=== PATIENT | male | born 1990 | race Caucasian/White ===

== ENCOUNTER 2021-12-07 18:55 | Emergency (ER) | payer OTHER, MEDICAID, SELFPAY ==
[2021-12-07 19:10] VITALS: BP 135/83; PULSE 94; RESP 20; TEMP 37.1; O2SAT 98; BMI 25.1
--- NOTE | 2021-12-07 19:14 | DI.RAD.S_ITS ---
PROCEDURE: XR FINGER LT MIN 2V INDICATIONS: finger laceration TECHNIQUE: AP hand, 2 views of the left index finger(s) acquired. COMPARISON: None. FINDINGS: Bones: No fractures or dislocations. No suspicious bony lesions. Soft tissues: No suspicious soft tissue calcifications. No radiopaque soft tissue foreign body seen. IMPRESSION: From left index finger without acute fracture or dislocation. No radiopaque soft tissue foreign bodies. Dictated by: Silvino Wilson M.D. on 12/07/2021 at 19:48 Approved by: Silvino Wilson M.D. on 12/07/2021 at 19:49
--- NOTE | 2021-12-07 20:39 | ED_ITS ---
HPI - Wound/Laceration <MIRIAM Rowland - Last Filed: 12/07/21 21:48> General Chief Complaint: Wound/Laceration Stated Complaint: cut left index finger Time Seen by Provider: 12/07/21 20:39 Source: patient Mode of arrival: Ambulatory History of Present Illness HPI narrative: this is a 31-year-old male presents to the emergency department complaining of a left 2nd digit laceration he sustained while he was cutting a fishing line and accidentally cut his finger instead. Patient is right handed, has a 2 cm laceration to the palmar aspect of his 2nd distal finger, denies knowing when his last tetanus was, states it has been bleeding a lot since this happened. He applied a pressure dressing. He denies any sensation changes, states he is able to flex and extend his finger without any deficit, endorses pain and tenderness, denies fingernail injury. Related Data Previous Rx's Medication Instructions Recorded cephalexin 500 mg capsule 500 mg PO BID 5 Days #10 cap 12/07/21 mupirocin 2 % topical ointment 1 applic TOPICAL BID #15 g 12/07/21 Allergies Allergy/AdvReac Type Severity Reaction Status Date / Time No Known Drug Allergies Allergy Verified 12/07/21 19:10 Review of Systems <MIRIAM Rowland - Last Filed: 12/07/21 21:48> Review of Systems Narrative: General: denies fever, chills Head/Neck: denies headache, neck pain Eyes: denies visual changes, eye pain Cardio: denies chest pain, palpitations Respiratory: denies shortness of breath, cough GI: denies abdominal pain, nausea, vomiting, or diarrhea : denies dysuria, hematuria MSK: denies joint pain, muscle weakness Skin: denies rash, itching, laceration to the 2nd digit, distal to have approximately 2 cm Neuro: denies numbness, tingling Patient History <MIRIAM Rowland - Last Filed: 12/07/21 21:48> Social History Smoking Status: Current every day smoker Smoking Status: Current every day smoker tobacco type: vaping Substance Use Type: does not use Exam <MIRIAM Rowland - Last Filed: 12/07/21 21:48> Narrative Exam Narrative: Independently reviewed vitals signs and nursing notes. General: cooperative, comfortable, in no acute distress, well developed and well groomed Head: atraumatic, symmetrical facial expressions Neck: supple, atraumatic, without lymphadenopathy. Eyes: pupils equal round and reactive, EOMI, conjunctiva normal Nose: nares patent, no rhinorrhea MSK: moves all extremities, ambulatory w/steady gait, neurovascularly intact, no weakness Skin: brisk capillary refill, no rash, no erythema, left 2nd digit distal phalanx with 2 cm deep laceration approximately 0.4 cm deep. Bleeding is contr olled, does not extend into fingernail however laceration does jag medially to the nail in a L-shape Neuro: normal speech and cognition, A&O x3, normal tone Psych: mental status is grossly normal, congruent mood, normal affect, pleasant and cooperative Initial Vital Signs Initial Vital Signs: Vital Signs Temperature 98.7 F 12/07/21 19:10 Pulse Rate 94 H 12/07/21 19:10 Respiratory Rate 20 12/07/21 19:10 Blood Pressure 135/83 12/07/21 19:10 Pulse Oximetry 98 12/07/21 19:10 <Eduardo Cedillo DO - Last Filed: 12/08/21 00:24> Initial Vital Signs Initial Vital Signs: Vital Signs Temperature 98.7 F 12/07/21 19:10 Pulse Rate 94 H 12/07/21 19:10 Respiratory Rate 20 12/07/21 19:10 Blood Pressure 135/83 12/07/21 19:10 Pulse Oximetry 98 12/07/21 19:10 Procedures <MIRIAM Rowland - Last Filed: 12/07/21 21:48> Laceration Repair Laceration 1: Description: linear Depth: simple, single layer (Approximately 0.4 cm deep) Local Anesthetic: lidocaine 1% and with bicarb (Digital block at the IP joint) Amount of anesthesia used (mL): 3 Pre-repair: wound explored, irrigated extensively, deep structures intact and extensive debridement Skin layer closed with: nylon Skin layer suture size: 5-0 Number of sutures: 8 Technique: simple, interrupted Course <MIRIAM Rowland - Last Filed: 12/07/21 21:48> Orders Ordered: ED Orders 12/07/21 19:14 XR finger LT min 2V Stat Discontinued Medications Bacitracin (Bacitracin Oint 0.9 Gm Pckt) 1 applic TOP NOW ONE Stop: 12/07/21 21:19 Last Admin: 12/07/21 21:23 Dose: 1 applic Documented by: CHELSEY Diphtheria/Tetanus/Acell Pertussis (Tet,Diph,Pertuss(Acell),Vac/Pf 0.5 Ml Syringe) 0.5 ml IM .ONCE ONE Stop: 12/07/21 20:42 Last Admin: 12/07/21 20:43 Dose: 0.5 ml Documented by: MANJINDER Lidocaine/Sodium Bicarbonate (Lido 1%/Sod Bicarb 8.4% (10ml) 10 Ml Syringe) 10 ml INJ NOW ONE Stop: 12/07/21 20:40 Last Admin: 12/07/21 20:42 Dose: 10 ml Documented by: MANJINDER Vital Signs Vital signs: Vital Signs - 8 hr 12/07/21 19:10 12/07/21 21:31 Temperature 98.7 F Pulse Rate 94 H 63 Respiratory Rate 20 Blood Pressure 135/83 118/66 Pulse Oximetry 98 97 <Eduardo Cedillo, DO - Last Filed: 12/08/21 00:24> Orders Ordered: ED Orders 12/07/21 19:14 XR finger LT min 2V Stat Discontinued Medications Bacitracin (Bacitracin Oint 0.9 Gm Pckt) 1 applic TOP NOW ONE Stop: 12/07/21 21:19 Last Admin: 12/07/21 21:23 Dose: 1 applic Documented by: CHELSEY Diphtheria/Tetanus/Acell Pertussis (Tet,Diph,Pertuss(Acell),Vac/Pf 0.5 Ml Syringe) 0.5 ml IM .ONCE ONE Stop: 12/07/21 20:42 Last Admin: 12/07/21 20:43 Dose: 0.5 ml Documented by: MANJINDER Lidocaine/Sodium Bicarbonate (Lido 1%/Sod Bicarb 8.4% (10ml) 10 Ml Syringe) 10 ml INJ NOW ONE Stop: 12/07/21 20:40 Last Admin: 12/07/21 20:42 Dose: 10 ml Documented by: MANJINDER Vital Signs Vital signs: Vital Signs - 8 hr 12/07/21 19:10 12/07/21 21:31 Temperature 98.7 F Pulse Rate 94 H 63 Respiratory Rate 20 Blood Pressure 135/83 118/66 Pulse Oximetry 98 97 [facility] - Wound/Laceration <Cassandra Sanchez BammagalieMIRIAM - Last Filed: 12/07/21 21:48> Imaging Data Extremity x-ray #1: Radiologist's Impression: PROCEDURE:? XR FINGER LT MIN 2V ? INDICATIONS:? finger laceration ? TECHNIQUE:? AP hand, 2 views of the left index finger(s) acquired.? ? COMPARISON:? None. ? FINDINGS:? ? Bones:? No fractures or dislocations.? No suspicious bony lesions.? ? Soft tissues:? No suspicious soft tissue calcifications.? No radiopaque soft tissue foreign body seen. ? IMPRESSION:? From left index finger without acute fracture or dislocation. No radiopaque soft tissue foreign bodies. ? ? ? Dictated by: Silvino Wilson M.D. on 12/07/2021 at 19:48 ? ? Approved by: Silvino Wilson M.D. on 12/07/2021 at 19:49 ? [facility] Narrative Medical decision making narrative: This is a 31-year-old male presents to the emergency department with a laceration to the distal tip of his left 2nd digit 2 cm long by 0.4 cm deep. Wound was thoroughly irrigated with normal saline, x-ray was negative for fracture dislocation or foreign body. Suture repair requiring 8, 5.0 Ethilon sutures completed, bleeding was controlled. Patient tolerated well, digital block at the D IP joint. Patient's tetanus was updated, he was prescribed mupirocin ointment and encouraged to use this and keep his wound covered for the next 10 days until his sutures come out. If he develops redness, streaking, worsening pain, for your discharge, or signs of infection he understands to start taking the cephalexin which was prescribed. Patient is appropriate and amenable to discharge home. Vital signs are stable on repeat examination is unremarkable. Patient has been informed of results. Patient has been given strict return to ER precautions for any new or worsening symptoms. Patient understands to follow up closely with outpatient providers as instructed. Patient understands plan and agrees to discharge home. All questions and rosario rns answered at this time. Discharge Plan Departure Patient Disposition: Home Clinical Impression: Laceration Instructions: DI for Laceration Repair Activity Restrictions/Additional Instructions: *You have been diagnosed with a laceration repair to your last 2nd digit requiring 8 sutures. These are not dissolve a ball, please have them removed in 10 days. Please apply topical mupirocin ointment to prevent infection and keep it covered daily with a Band-Aid. If you develop any signs of infection including increased pain, redness, swelling, streaking up your finger, please start taking the antibiotic. Your tetanus was updated today, your good for another 10 years, thank you for trusting us with your care, I hope you feel better soon. *What to do: *Please continue to take your regular medications as directed. [ x] New medication prescriptions sent to your pharmacy: [[facility] ] [ ] New medication written as a paper prescription [ ] No new medications given *Please follow up with your primary care provider in 2-3 days, call for an appointment. Let them know you were seen in the Emergency Department and that we asked that you be seen for follow-up. We will electronically transmit a record of today's note if your PCP is in our system *If you do not have a primary care provider please contact [phone] to establish care with one of the [facility] primary care providers. *Return to Emergency Department if you should have any new, worsening or concerning symptoms, such as [fever greater than 101F, chills, worsening pain, persistent vomiting or other bothersome symptoms] Prescriptions: New mupirocin 2 % ointment 1 applic topical BID Qty: 15 0RF cephalexin 500 mg capsule 500 mg PO BID 5 Days Qty: 10 0RF Stand Alone Forms: Work Release Note <Eduardo Cedillo, DO - Last Filed: 12/08/21 00:24> Cosign ED Attending Cosignature Attestation: Dr Cedillo Co-Sign Statement: I was available for consultation during this patient's emergency department visit. This chart is signed by myself for administrative purposes only. I did not have direct contact with this patient during this visit. They were seen independently by the APC.
[2021-12-07] MEDS: LIDO 1%/SOD BICARB 8.4% (10ML) 10 ML SYRINGE INJ (20:42)
[2021-12-07] MEDS: TET,DIPH,PERTUSS(ACELL),VAC/PF 0.5 ML SYRINGE IM (20:43)
[2021-12-07] MEDS: BACITRACIN OINT 0.9 GM PCKT 1 APPLIC TOP (21:23)
[2021-12-07 21:31] VITALS: BP 118/66; PULSE 63; O2SAT 97
== END 2021-12-07 21:32 | disposition home or self-care (01) ==
PROVIDERS: Emergency Provider Nurse Practitioner Critical Care Medicine
DX: S61.211A Laceration without foreign body of left index finger without damage to nail, initial encounter (principal); W26.9XXA Contact with unspecified sharp object(s), initial encounter; Z23 Encounter for immunization
CPT/HCPCS: 12001; 64450; 73140; 90471; 99283; 99284; 90715

== ENCOUNTER 2022-06-22 12:35 | Emergency (ER) | payer OTHER, MEDICAID, SELFPAY ==
[2022-06-22 12:39] VITALS: BP 113/75; PULSE 81; RESP 15; TEMP 36; O2SAT 100; BMI 22.9
--- NOTE | 2022-06-22 12:42 | DI.RAD.S_ITS ---
PROCEDURE: XR FINGER RT MIN 2V INDICATIONS: right index finger,swelling TECHNIQUE: AP hand, 2 views of the 2nd finger(s) acquired. COMPARISON: [facility], CR, XR FINGER LT MIN 2V, 12/07/2021, 19:05. FINDINGS: Bones: No fractures or dislocations. No suspicious bony lesions. Soft tissues: No suspicious soft tissue calcifications. IMPRESSION: No acute osseous abnormality. Dictated by: Ike Anderson M.D. on 06/22/2022 at 12:30 Approved by: Ike Anderson M.D. on 06/22/2022 at 12:32
--- NOTE | 2022-06-22 12:48 | ED_ITS ---
HPI - Extremity Injury (Upper) <Tay Baker PA-C - Last Filed: 06/22/22 13:39> General Chief Complaint: Extremity Injury, Upper Stated Complaint: cut finger 4 days ago swollen filled with pus Time Seen by Provider: 06/22/22 12:42 Source: patient Mode of arrival: Ambulatory History of Present Illness HPI narrative: Is due to cutting his right finger 4 days ago while working with a crab pot. He states that it has been draining purulent material over the last couple days which caused him to be concerned and comes to the emergency department. Denies any fevers, nausea, vomiting, or any other concerning signs or symptoms. Patient states that his tetanus is up-to-date from recent laceration. States that is difficult to move his finger because of swelling. Related Data Previous Rx's Medication Instructions Recorded mupirocin 2 % topical ointment 1 applic topical BID #15 grams 12/07/21 cephalexin 500 mg capsule 500 mg PO QID 7 days #28 caps 06/22/22 sulfamethoxazole 800 1 tab PO BID 7 days #14 tabs 06/22/22 mg-trimethoprim 160 mg tablet (Bactrim DS) Allergies Allergy/AdvReac Type Severity Reaction Status Date / Time No Known Drug Allergies Allergy Verified 06/22/22 12:39 Review of Systems <Tay Baker PA-C - Last Filed: 06/22/22 13:39> Review of Systems Narrative: GENERAL: Denies chills, fatigue, malaise, fever, sweats. HEENT: Denies sinus pain, ear pain, sore throat, difficulty swallowing, dizziness. RESPIRATORY: Denies dyspnea, cough, wheezing, hemoptysis, sputum. CARDIOVASCULAR: Denies chest pain, palpitations, orthopnea, edema, GASTROINTESTINAL: Denies nausea, vomiting, abdominal pain, diarrhea, constipation, melena. : Denies dysuria, frequency, incontinence, hematuria, urinary retention. MUSCULOSKELETAL: Finger pain, otherwise denies weakness, joint pain, or bony pain SKIN: Denies rash, skin lesions, or other NEUROLOGIC: Denies weakness, headache, numbness, change in speech, confusion, seizures, incoordination. PSYCHIATRIC: No concerning psychosocial issues. 12 point review of systems is negative except for those stated above Patient History <JALEN Tapia Last Filed: 06/22/22 13:39> Social History Smoking Status: Unknown if ever smoked Smoking Status: Unknown if ever smoked tobacco type: vaping alcohol intake frequency: holidays/special occasions only Substance Use Type: does not use Exam <JALEN Tapia Last Filed: 06/22/22 13:39> Narrative Exam Narrative: GENERAL: Well-developed patient, in mild distress. HEAD: Atraumatic. Normocephalic. EYES: Pupils equal round and reactive. Extraocular motions intact. No scleral icterus. No injection or drainage. ENT: Nose without bleeding, purulent drainage. Throat without erythema, tonsillar hypertrophy or exudate. Airway patent. NECK: Trachea midline. Non tender CARDIOVASCULAR: Regular rate and rhythm without murmurs, gallops, or rubs. RESPIRATORY: Clear to auscultation. Breath sounds equal bilaterally. No wheezes, rales, or rhonchi. GASTROINTESTINAL: Abdomen soft, non-tender, nondistended. EXTREMITIES: No edema or joint tenderness. BACK: Nontender without deformity or crepitance. No flank tenderness. NEURO: AOx3. SKIN: 2 cm laceration to the dorsal aspect of the right 2nd finger. No active bleeding. No purulent drainage noticed no fluctuance. Minimal surrounding erythema. Initial Vital Signs Initial Vital Signs: Vital Signs Temperature 96.8 F L 06/22/22 12:39 Pulse Rate 81 06/22/22 12:39 Respiratory Rate 15 06/22/22 12:39 Blood Pressure 113/75 06/22/22 12:39 Pulse Oximetry 100 06/22/22 12:39 Oxygen Delivery Method 06/22/22 12:39 <Ebenezer Macario DO - Last Filed: 06/25/22 02:33> Initial Vital Signs Initial Vital Signs: Vital Signs Temperature 96.8 F L 06/22/22 12:39 Pulse Rate 81 06/22/22 12:39 Respiratory Rate 15 06/22/22 12:39 Blood Pressure 113/75 06/22/22 12:39 Pulse Oximetry 100 06/22/22 12:39 Oxygen Delivery Method 06/22/22 12:39 Course <JALEN Tapia Last Filed: 06/22/22 13:39> Orders Ordered: ED Orders 06/22/22 12:42 XR finger RT min 2V Stat Vital Signs Vital signs: Vital Signs - 8 hr 06/22/22 12:39 Temperature 96.8 F L Pulse Rate 81 Respiratory Rate 15 Blood Pressure 113/75 Pulse Oximetry 100 Oxygen Delivery Method Room Air <Ebenezer Macario DO - Last Filed: 06/25/22 02:33> Orders Ordered: ED Orders 06/22/22 12:42 XR finger RT min 2V Stat Vital Signs Vital signs: Vital Signs - 8 hr 06/22/22 12:39 Temperature 96.8 F L Pulse Rate 81 Respiratory Rate 15 Blood Pressure 113/75 Pulse Oximetry 100 Oxygen Delivery Method Room Air MDM - Extremity Injury (Upper) <Tay Baker PA-C - Last Filed: 06/22/22 13:39> Imaging Data Extremity x-ray #1: Radiologist's Impression: [address] [address] XRay Report Signed Patient: Gonzalez Louise MR#: [id number] : 1990 Acct:[id number] Age/Sex: 32 / M Date of Service: 06/22/22 Loc: ED Accession Number: [id number] ?? Procedure: XR finger RT min 2V Ordering Provider: Ebenezer Macario D.O. PROCEDURE:? XR FINGER RT MIN 2V ? INDICATIONS:? right index finger,swelling ? TECHNIQUE:? AP hand, 2 views of the 2nd finger(s) acquired.? ? COMPARISON:? [facility], , XR FINGER LT MIN 2V, 12/07/2021, 19:05. ? FINDINGS:? ? Bones:? No fractures or dislocations.? No suspicious bony lesions.? ? Soft tissues:? No suspicious soft tissue calcifications.? ? IMPRESSION:? No acute osseous abnormality. ? ? Dictated by: Ike Anderson M.D. on 06/22/2022 at 12:30 ? ? Approved by: Ike Anderson M.D. on 06/22/2022 at 12:32 ? [facility] Narrative Medical decision making narrative: This is a 32-year-old male presents emergency department due to a possibly infected finger laceration. Patient did not exhibit any signs of flexor tenosynovitis on exam. No joint irritability with extension of the finger, no pain with palpation of the flexor aspect. Due to the reported purulent drainage Bactrim will be prescribed as well as Keflex for double antibiotic coverage. Finger x-ray showed no evidence of any kind of osteomyelitis or bone damage. Wound was not actively bleeding or open and due to the injury happened 4 days ago no additional closure will be attempted. Discharge Plan Departure Patient Disposition: Home Clinical Impression: Infected cut of finger Activity Restrictions/Additional Instructions: Thank you for coming to the [facility] Emergency Department today. It appears that your finger injury has become slightly infected. Please take the antibiotics as prescribed to treat the infection. The x-ray showed no evidence of any kind of infection into the bone or any kind of fracture. Please take a complete course of antibiotics. Please take with food. I hope you feel better soon. Prescriptions: New cephalexin 500 mg capsule 500 mg PO QID 7 Days Qty: 28 0RF sulfamethoxazole-trimethoprim [Bactrim DS] 800-160 mg tablet 1 tab PO BID 7 Days Qty: 14 0RF No Action mupirocin 2 % ointment 1 applic topical BID Qty: 15 0RF Visit Report Forms: Patient Portal/API <Ebenezer Macario DO - Last Filed: 06/25/22 02:33> Cosign ED Attending Cosignature Attestation: I was immediately available in the department for consultation. This documentation has been reviewed and I agree with assessment and plan. Supervised by Ebenezer Macario DO
== END 2022-06-22 13:43 | disposition home or self-care (01) ==
PROVIDERS: Emergency Provider Physician Assistant Medical
DX: S61.210A Laceration without foreign body of right index finger without damage to nail, initial encounter (principal); W45.8XXA Other foreign body or object entering through skin, initial encounter
CPT/HCPCS: 73140; 99281; 99283

== ENCOUNTER 2024-05-12 19:34 | Emergency (ER) | payer BC, OTHER, SELFPAY ==
[2024-05-12 19:37] VITALS: BP 142/85; PULSE 112; RESP 16; TEMP 36.9; O2SAT 95; BMI 23.6
--- NOTE | 2024-05-12 22:52 | ED.ANIMALBIT ---
HPI - Animal Bite General Chief Complaint: Animal Bite Stated Complaint: animal bite Time Seen by Provider: 05/12/24 22:52 Source: patient Mode of arrival: Ambulatory History of Present Illness HPI narrative: 34-year-old right-handed male who was bitten in the right volar forearm by his own dog as he was trying to break up a fight proximally 7:00 p.m. tonkrystian. His dog has had its vaccinations he believes including rabies, and otherwise had been acting okay prior to the dogs having a fight. Small puncture to left thumb as well. Related Data Previous Rx's Medication Instructions Recorded mupirocin 2 % topical ointment 1 applic topical BID #15 grams 12/07/21 amoxicillin 875 mg-potassium 1 tab PO BID #14 tabs 05/12/24 clavulanate 125 mg tablet Allergies Allergy/AdvReac Type Severity Reaction Status Date / Time No Known Drug Allergies Allergy Verified 06/22/22 12:39 Review of Systems Review of Systems Narrative: see HPI Patient History Social History Smoking Status: Unknown if ever smoked Smoking Status: Unknown if ever smoked tobacco type: smokeless tobacco alcohol intake frequency: holidays/special occasions only Substance Use Type: does not use Exam Narrative Exam Narrative: GENERAL: Well-developed patient, in mild distress. HEAD: Atraumatic. Normocephalic. EYES: Pupils equal round and reactive. Extraocular motions intact. No scleral icterus. No injection or drainage. ENT: Nose without bleeding, purulent drainage. Throat without erythema, tonsillar hypertrophy or exudate. Airway patent. NECK: Trachea midline. Non tender CARDIOVASCULAR: Regular rate and rhythm without murmurs, gallops, or rubs. RESPIRATORY: Clear to auscultation. Breath sounds equal bilaterally. No wheezes, rales, or rhonchi. GASTROINTESTINAL: Abdomen soft, non-tender, nondistended. EXTREMITIES: 2 cm transverse laceration to right volar forearm from dog bite, with central 2 mm bridging skin, small 1-2 mm punctures. Patient can flex and extend at the right wrist and move fingers well. No lymphangitic streaking cephalad. No difficulties with moving right elbow and shoulder. No other extremity injuries obvious. BACK: Nontender without deformity or crepitance. No flank tenderness. NEURO: AOx3. Motor functions grossly nonfocal SKIN: No rash or erythema of visible areas Initial Vital Signs Initial Vital Signs: Vital Signs Temperature 98.5 F 05/12/24 19:37 Pulse Rate 112 H 05/12/24 19:37 Respiratory Rate 16 05/12/24 19:37 Blood Pressure 142/85 H 05/12/24 19:37 Pulse Oximetry 95 05/12/24 19:37 Oxygen Delivery Method Room Air 05/12/24 19:37 Procedures Laceration Repair Laceration 1: Time of procedure: 00:42 Site: upper extremity (Volar aspect right forearm) Side (If applicable): right Size (cm): 2.5 Description: linear Depth: simple, single layer Local Anesthetic: lidocaine 1% Amount of anesthesia used (mL): 8 Pre-repair: wound explored and irrigated extensively Skin layer closed with: nylon Skin layer suture size: 4-0 Number of sutures: 4 Technique: simple, interrupted Course Orders Ordered: ED Orders 05/12/24 23:14 XR forearm RT 2V Stat Discontinued Medications Acetaminophen (Acetaminophen 325 Mg Tablet) 650 mg PO NOW ONE Stop: 05/12/24 23:11 Last Admin: 05/12/24 23:43 Dose: 650 mg Documented By: ANTONIO Amoxicillin/Clavulanate Potassium (Amoxicillin/Clav 875/125 Mg) 1 tab PO NOW ONE Stop: 05/12/24 23:10 Last Admin: 05/12/24 23:43 Dose: 1 tab Documented By: ANTONIO Vital Signs Vital signs: Vital Signs - 8 hr 05/12/24 19:37 Temperature 98.5 F Pulse Rate 112 H Respiratory Rate 16 Blood Pressure 142/85 H Pulse Oximetry 95 Oxygen Delivery Method Room Air MDM - Animal Bite Imaging Data Extremity x-ray #1: Radiologist's Impression: [address] [address] XRay Report Signed Patient: Gonzalez Louise MR#: [id number] : 1990 Acct:[id number] Age/Sex: 34 / M Date of Service: 05/12/24 Loc: ED Accession Number: [id number] Procedure: XR forearm RT 2V Ordering Provider: Mook Greene MD PROCEDURE: XR FOREARM RT 2V INDICATIONS: dogbite, eval for FB TECHNIQUE: 2 views of the forearm were acquired. COMPARISON: None. FINDINGS: Bones: No fractures or dislocations. No suspicious bony lesions. Soft tissues: No suspicious soft tissue calcifications or masses. Trace subcutaneous gas along the volar mid forearm. IMPRESSION: Trace subcutaneous gas along the volar mid forearm, without underlying fracture or foreign body. Dictated by: Goyo Castellanos M.D. on 05/12/2024 at 23:46 Approved by: Goyo Castellanos M.D. on 05/12/2024 at 23:47 MDM Narrative Medical decision making narrative: Dog bite right volar forearm injury from his own dog that was in a fight with another dog, patient was attempting to break up the dog fight, provoked setting. He is in the other dog had not been acting unusual. His dog has received rabies vaccine per patient. Tetanus less than 5 years ago up-to-date by report. X-ray right forearm performed looking for foreign body, none identified. Field block with copious saline irrigation. Primary closure with sutures, see procedure note. Oral antibiotic Augmentin given here, prescription sent to pharmacy. Wound dressed after closure. Wound recheck advised in the next couple of days. Return precautions discussed Discharge Plan Departure Patient Disposition: Home Clinical Impression: Dog bite, Forearm laceration Activity Restrictions/Additional Instructions: Right forearm dog bite laceration, from your own dog, who has been vaccinated against rabies by report. You had tetanus shot in last 2 years. You were breaking up a dog fight. Dog was otherwise acting normally, not suspected to have rabies like behavior. Laceration to the right forearm, no obvious fracture or foreign bodies on x-ray screening. Oral antibiotic Augmentin given to help prevent infection, prescription sent to your pharmacy for further course of antibiotic to help prevent infection. Wound was closed to help stop bleeding. This is high risk wound for infection. Wound check advised in next couple of days, later suture removal. Return earlier to this/nearest emergency department for any change worsening symptoms or any concerns prior Prescriptions: New amoxicillin-pot clavulanate 875-125 mg tablet 1 tab PO BID Qty: 14 0RF No Action mupirocin 2 % ointment 1 applic topical BID Qty: 15 0RF Referrals: Miscellaneous,Doctor, [Primary Care Provider] - Stand Alone Forms: Patient Portal/API
--- NOTE | 2024-05-12 23:14 | DI.RAD.S_ITS ---
PROCEDURE: XR FOREARM RT 2V INDICATIONS: dogbite, eval for FB TECHNIQUE: 2 views of the forearm were acquired. COMPARISON: None. FINDINGS: Bones: No fractures or dislocations. No suspicious bony lesions. Soft tissues: No suspicious soft tissue calcifications or masses. Trace subcutaneous gas along the volar mid forearm. IMPRESSION: Trace subcutaneous gas along the volar mid forearm, without underlying fracture or foreign body. Dictated by: Goyo Castellanos M.D. on 05/12/2024 at 23:46 Approved by: Goyo Castellanos M.D. on 05/12/2024 at 23:47
[2024-05-12] MEDS: AMOXICILLIN/CLAV 875/125 MG 1 TAB PO (23:43)
[2024-05-12] MEDS: ACETAMINOPHEN 325 MG TABLET 650 MG PO (23:43)
== END 2024-05-13 01:00 | disposition home or self-care (01) ==
PROVIDERS: Emergency Provider Emergency Medicine
DX: S41.151A Open bite of right upper arm, initial encounter (principal); W54.0XXA Bitten by dog, initial encounter
CPT/HCPCS: 12001; 73090; 99283

== ENCOUNTER 2024-09-19 18:00 | Emergency (ER) | payer BC, OTHER, SELFPAY ==
--- NOTE | 2024-09-19 | DI.RAD.S_ITS ---
PROCEDURE: XR FOREARM RT 2V INDICATIONS: PAIN TECHNIQUE: 2 views of the forearm were acquired. COMPARISON: [facility], CR, XR FOREARM RT 2V, 05/12/2024, 23:22. FINDINGS: Bones: No fractures or dislocations. No suspicious bony lesions. Soft tissues: No suspicious soft tissue calcifications or masses. Near complete resolution of previously seen subcutaneous gas. IMPRESSION: No acute bony abnormality. Compared to prior radiograph 05/12/2024, near complete resolution of trace subcutaneous gas along the volar mid forearm. Approved by: Daniella Villarreal M.D.,Ph.D. on 09/19/2024 at 20:48
[2024-09-19 18:38] VITALS: BP 121/64; PULSE 73; RESP 16; TEMP 37.1; O2SAT 97; BMI 23.6
--- NOTE | 2024-09-19 18:42 | DI.RAD.S_ITS ---
PROCEDURE: XR WRIST RT MIN 3V INDICATIONS: pain/pop in wrist. swelling and painful TECHNIQUE: 4 views of the wrist were acquired. COMPARISON: Right hand radiographs 08/20/2018 and right wrist radiographs 01/01/2015. FINDINGS: Bones: There is well corticated ossific density adjacent to the proximal pole of the scaphoid, favored to be chronic and similar appearance compared to prior radiograph 08/20/2018. No definite acute radiographic abnormality visualized. Soft tissues: No suspicious soft tissue calcifications. IMPRESSION: No definite acute radiographic abnormality. Suspect chronic well corticated ossific density at the proximal pole of the scaphoid. Correlate with point tenderness. If symptoms persist with conservative management, consider repeat radiographs in 5-7 days. Approved by: Daniella Villarreal M.D.,Ph.D. on 09/19/2024 at 20:40
--- NOTE | 2024-09-19 21:01 | ED_ITS ---
HPI - Extremity Injury (Upper) General Chief Complaint: Extremity Injury, Upper Stated Complaint: R Arm Injury/Swelling Time Seen by Provider: 09/19/24 20:26 History of Present Illness HPI narrative: 34-year-old male presents for evaluation of approximately 1 week of right forearm pain. He states that he was lifting a heavy Pallet of wood when he felt like something popped in his forearm. He continued to work, but this week he has had persistent pain and he was here today for evaluation. Related Data Previous Rx's Medication Instructions Recorded mupirocin 2 % topical ointment 1 applic topical BID #15 grams 12/07/21 amoxicillin 875 mg-potassium 1 tab PO BID #14 tabs 05/12/24 clavulanate 125 mg tablet Allergies Allergy/AdvReac Type Severity Reaction Status Date / Time No Known Drug Allergies Allergy Verified 06/22/22 12:39 Patient History Social History Smoking Status: Unknown if ever smoked Smoking Status: Unknown if ever smoked tobacco type: smokeless tobacco alcohol intake frequency: holidays/special occasions only Exam Initial Vital Signs Initial Vital Signs: Vital Signs Temperature 98.8 F 09/19/24 18:38 Pulse Rate 73 09/19/24 18:38 Respiratory Rate 16 09/19/24 18:38 Blood Pressure 121/64 09/19/24 18:38 Pulse Oximetry 97 09/19/24 18:38 Oxygen Delivery Method Room Air 09/19/24 18:38 Const: Awake, alert, no acute distress, nontoxic appearing MSK: No obvious deformity. Mild tenderness over the right volar forearm. Full ROM of wrist and elbow. Able to make A-ok sign, thumbs up, and touch thumb to all fingers Skin: Warm, Dry, intact, no rashes Neuro: AO x3, CN II-XII grossly intact, moves all extremities Course Orders Ordered: ED Orders 09/19/24 18:42 XR wrist RT min 3V Stat Vital Signs Vital signs: Vital Signs - 8 hr 09/19/24 18:38 Temperature 98.8 F Pulse Rate 73 Respiratory Rate 16 Blood Pressure 121/64 Pulse Oximetry 97 Oxygen Delivery Method Room Air MDM - Extremity Injury (Upper) Imaging Data Extremity x-ray #1: Radiologist's Impression: PROCEDURE: XR FOREARM RT 2V INDICATIONS: PAIN TECHNIQUE: 2 views of the forearm were acquired. COMPARISON: [facility], CR, XR FOREARM RT 2V, 05/12/2024, 23:22. FINDINGS: Bones: No fractures or dislocations. No suspicious bony lesions. Soft tissues: No suspicious soft tissue calcifications or masses. Near complete resolution of previously seen subcutaneous gas. IMPRESSION: No acute bony abnormality. Compared to prior radiograph 05/12/2024, near complete resolution of trace subcutaneous gas along the volar mid forearm. Approved by: Daniella Villarreal M.D.,Ph.D. on 09/19/2024 at 20:48 MDM Narrative Medical decision making narrative: Pain in forearm after lifting heavy object. Neurovascularly intact, no obvious deformity. X-rays negative for acute findings. Patient counseled on imaging findings, recommended compression, rest, and NSAIDs. Patient forearm wrapped in roberta wrap in the ED. Declined note for work. ED return precautions discussed. Discharge Plan Departure Patient Disposition: Home Clinical Impression: Forearm strain Instructions: DI for Wrist Sprain Activity Restrictions/Additional Instructions: Your x-rays are normal and do not show any sign of fracture. Take Tylenol and ibuprofen per label instructions for pain and swelling. Apply ice as needed for comfort. Wear the wrap around your forearm for comfort. It may take up to a couple of weeks before your wrist goes completely back to normal. If you notice decrease movement ability in your wrist or hand please come back for repeat evaluation. Prescriptions: No Action mupirocin 2 % ointment 1 applic topical BID Qty: 15 0RF amoxicillin-pot clavulanate 875-125 mg tablet 1 tab PO BID Qty: 14 0RF Referrals: Miscellaneous,DoctorMD [Primary Care Provider] - Stand Alone Forms: Patient Portal/API/Survey
== END 2024-09-19 21:08 | disposition home or self-care (01) ==
PROVIDERS: Emergency Provider Emergency Medicine
DX: S56.911A Strain of unspecified muscles, fascia and tendons at forearm level, right arm, initial encounter (principal); X50.0XXA Overexertion from strenuous movement or load, initial encounter
CPT/HCPCS: 73090; 73110; 99282; 99283